=== PATIENT | male | born 1935 | race Caucasian/White ===

== ENCOUNTER → 2020-08-14 06:55 | Outpatient (CLI) | payer MEDICARE, SELFPAY ==
[2020-08-14 20:42] LABS: SARS-CoV-2 RNA PCR Positive
== END ==
PROVIDERS: PCP Internal Medicine; Visit Provider Nurse Practitioner
DX: U07.1 COVID-19 (principal)
CPT/HCPCS: C9803; U0003; U0005

== ENCOUNTER 2022-08-19 10:57 | Inpatient (IN) | payer MEDICARE, SELFPAY ==
[2022-08-19] VITALS (25 sets, daily range): BP systolic 149–218; BP diastolic 60–93; PULSE 78–120; RESP 10–32; TEMP 36.4–37.1; O2SAT 94–100
--- NOTE | ~2022-08-19 | CT_ITS ---
EXAMINATION: CT abdomen pelvis w con INDICATION: Abdominal pain TECHNIQUE: Computed tomographic images of the abdomen and pelvis were obtained after the administrati on of 100 cc of Omnipaque 350 intravenous contrast. The dose-length product (DLP) was 443.53 mGy-cm. Automated exposure control and iterative reconstruction technique were employed. COMPARISON: None available FINDINGS: Minimal dependent atelectasis is present in the lung bases. The heart size is normal. There is a moderate-sized sliding hiatal hernia. Punctate calcifications in an otherwise normal spleen lik nile represent healed granulomatous disease. There is mild distention of the gallbladder likely due to fasting state. The liver, pancreas, and adrenal glands are normal. There are small areas of cortical scarring of the kidneys. There are soft tissue attenuation masses of the left kidney measuring up to 1.5 cm There is calcified atherosclerosis of the aorta and many of the other arteries. 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 There is a right ingui nal hernia containing a short segment of small bowel. The proximal segment of bowel is upper limits o f normal in caliber and the distal segment is relatively decompressed. There is and mesenteric edema in the herniated segment of bowel and a small volume of ascites in the right inguinal hernia. Colonic diverticulosis is present without evidence of diverticulitis. There is marked enlargement of the pro state. Changes of mesh ventral hernia repair are noted. There is moderate lumbar spondylosis. IMPRESSION: 1. Right inguinal hernia containing a short segment of small bowel. Mesenteric edema and ascites are seen within the right inguinal hernia sac. The distal small bowel is relatively decompressed. Surgica l evaluation is recommended. 2. 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 Nonemergent vascu lar surgical evaluation is recommended. 3. Indeterminate masses of the left kidney. Follow-up with nonemergent CT or MRI without and with con trast is recommended. Reviewed, dictated and finalized at location [facility] IMPRESSION: 1. Right inguinal hernia containing a short segment of small bowel. Mesenteric edema and ascites are seen within the right inguinal hernia sac. The distal sma ll bowel is relatively decompressed. Surgical evaluation is recommended. 2. Chronic appearing dissection of the infrarenal abdominal aorta without aneur ysm. Nonemergent vascular surgical evaluation is recommended. 3. Indeterminate masses of the left kidney. Follow-up with nonemergent CT or MR I without and with contrast is recommended.
--- NOTE | ~2022-08-19 | XR_ITS ---
EXAMINATION: XR abdomen obstructive series DATE: 08/21/2022 12:23 INDICATION: Small bowel obstruction. TECHNIQUE: Upright and supine views of the abdomen were obtained. COMPARISON: CT abdomen and pelvis 08/19/2022 FINDINGS: There are multiple dilated loops of small bowel. There is prominent stool in the proximal c olon. No free intraperitoneal gas. There are surgical clips from ventral hernia repair. Skin gualberto overlie the right inguinal region. IMPRESSION: 1. Dilated small bowel status post recent surgery, consistent with adynamic ileus. Reviewed, dictated and finalized at location [facility]. [facility] IMPRESSION: 1. Dilated small bowel status post recent surgery, consistent with adynamic ile us.
[2022-08-19 13:02] LABS: Basophils Percent Auto 0.2 % (0.2-1.2); Eosinophils Percent Auto 0.1 % (0-4.4); Hematocrit 43.3 % (42.0-52.0); Hemoglobin 14.2 g/dL (14.0-18.0); Immature Granulocyte Absolute 0.05 K/mm3 (0.00-0.031); Immature Granulocyte Percent A 0.4 % (0-0.5); Lymphocytes Absolute Auto 0.55 K/mm3 (0.9-3.2); Lymphocytes Percent Auto 4.9 % (18.3-44.2); Mean Corpuscular HGB Conc 32.8 g/dl (32-36); Mean Corpuscular Volume 97.5 fl (80-100); Mean Platelet Volume 10.3 fl (7.4-10.4); Monocytes Absolute Auto 0.7 K/mm3 (0.1-0.6); Neutrophils Absolute Auto 9.9 K/mm3 (1.3-6.7); Neutrophils Percent Auto 88.4 % (45.5-73.1); Platelet Count Result 214 k/mm3 (150-375); Red Blood Count 4.44 M/mm3 (4.6-6.20); Red Cell Distribution Width 13.2 % (11.5-14.5); White Blood Count 11.2 K/mm3 (4.5-10.0)
[2022-08-19 13:25] LABS: Appearance Urine Clear (Clear); Bacteria Urine None Seen /hpf; Bilirubin Urine 1+ (Negative); Blood Urine Negative (Negative); Color Urine Dark Yellow (Yellow); Glucose Urine UA Negative (Negative); Ketones Urine 3+ mg/dL (Negative); Leukocyte Esterase Ur 1+ LEU/UL (Negative); Mucus Urine Present /lpf; Nitrate Urine Negative (Negative); Protein Urine 2+ mg/dL (Negative); Specific Grav Ur 1.027 (1.001-1.035); Squamous Epithelial Cell Urine Occasional /hpf (Few)
[2022-08-19 13:26] LABS: Alanine Aminotransferase 21 U/L (6-50); Albumin Level 4.7 g/dL (3.5-5.1); Alkaline Phosphatase 69 U/L (38-126); Anion Gap 7 mmol/L (8-16); Aspartate Amino Transferase 38 U/L (17-59); Bilirubin,Total 0.5 mg/dL (0.2-1.3); Blood Urea Nitrogen 27 mg/dL (9-20); Calcium 9.4 mg/dL (8.4-10.2); Carbon Dioxide 26 mmol/L (22-30); Chloride 101 mmol/L (98-107); Estimated Glomerular Filt Rate 48; Glucose 160 mg/dL (65-110); Lipase 125 U/L (23-300); Potassium 4.5 mmol/L (3.4-5.0); Sodium 134 mmol/L (137-145)
[2022-08-19 13:48] LABS: Add Urine Microscopic? YES
--- NOTE | 2022-08-19 17:18 | ED.ABDPAIN ---
HPI - Abdominal Pain General Chief Complaint: Abdominal Pain <Doretha Thompson APRN - Last Filed: 08/19/22 19:35> Stated Complaint: LOWER ABD PAIN <Doretha Thompson APRN - Last Filed: 08/19/22 19:35> Time Seen by Provider: 08/19/22 16:10 <Doretha Thompson APRN - Last Filed: 08/19/22 19:35> Source: patient <Doretha Thompson APRN - Last Filed: 08/19/22 19:35> Mode of arrival: ambulatory <Doretha Thompson APRN - Last Filed: 08/19/22 19:35> Limitations: no limitations <Doretha Thompson APRN - Last Filed: 08/19/22 19:35> History of Present Illness HPI narrative: 87-year-old male presents today with complaints/concerns of lower abdominal pain. He does have a history of a ventral hernia repair with mesh. Patient told triage nurse that was right lower abdominal pain. Patient now currently states is the entire lower abdomen. He does remember that this morning he had bent over and when he got up he noticed a sharp pain to the right lower groin. But he has noticed a bulge to the right groin region since he came back to the room. Patient currently rating pain 8-9 out of 10. Patient denies any current nausea, vomiting, diarrhea. He states he did have an episode this morning where he thought he was can have diarrhea and vomiting at the same time sat on the toilet for about 20 minutes with out anything happening. Patient does state his last bowel movement was this morning and was normal for him. Patient denies any fevers, body aches, chills, dysuria, blood in the urine. <Doretha Thompson APRN - Last Filed: 08/19/22 19:35> MD elicited complaint: abdominal pain <Doretha Thompson APRN - Last Filed: 08/19/22 19:35> Pertinent past history: none <Doretha Thompson APRN - Last Filed: 08/19/22 19:35> Pain Consistency: constant <Doretha Thompson TUBER MACHINE OPERATOR - Last Filed: 08/19/22 19:35> Location: suprapubic and groin (Right groin) <Doretha Thompson, TUBER MACHINE OPERATOR - Last Filed: 08/19/22 19:35> Severity: severe <Doretha Thompson - Last Filed: 08/19/22 19:35> Quality: sharp <Doretha Thompson - Last Filed: 08/19/22 19:35> Relieving factors: nothing <Doretha ThompsonSepN - Last Filed: 08/19/22 19:35> Related Data Home Medications: Home Medications Medication Instructions Recorded Confirmed aspirin 81 mg tablet,delayed 81 mg PO DAILY 12/26/20 03/11/22 release fluticasone propionate 110 1 puff inhalation Q12H PRN 12/26/20 03/11/22 mcg/actuation HFA aerosol inhaler (Flovent HFA) <Doretha Thompson - Last Filed: 08/19/22 19:35> Allergies/Adverse Reactions: Allergies Allergy/AdvReac Type Severity Reaction Status Date / Time Penicillins AdvReac Unknown Other Verified 03/11/22 12:58 <Doretha Thompson - Last Filed: 08/19/22 19:35> Review of Systems Review of Systems: CONSTITUTIONAL: Denies fever, chills, or sweats. EYES: Denies visual changes, redness, or discharge. ENT: Denies rhinorrhea, congestion, sore throat, or otalgia. CARDIOVASCULAR: Denies chest pain, palpitations, or edema. RESPIRATORY: Denies cough or dyspnea. GASTROINTESTINAL: Pelvic pain, right groin pain. Denies abdominal pain, nausea, vomiting, or diarrhea. GENITOURINARY: Denies dysuria or hematuria. SKIN: Denies rash or itching. MUSCULOSKELETAL: Denies back pain, joint pain, or myalgia. NEUROLOGIC: Denies headache, numbness, dizziness, or weakness. PSYCHIATRIC: Denies anxiety or depression. <Doretha Thompson, - Last Filed: 08/19/22 19:35> [facility] Past Medical History Medical History: Medical History (Updated 08/19/22 @ 19:46 by Melida Reed MD) COPD (chronic obstructive pulmonary disease) Diabetes Takes a sugar pill twice a day Finger fracture HLD (hyperlipidemia) [place] (hard of hearing) HTN (hypertension) Hydrocele, left Shingles Skin cancer Excisions from arms and ears <Doretha Thompson, TUBER MACHINE OPERATOR - Last Filed: 08/19/22 19:35> Surgical History Surgical Histor
[2022-08-19] MEDS: MORPHINE SULFATE (*CRX) 4 MG/ML INJ IV PUSH ×2 (17:49→18:15)
[2022-08-19] MEDS: SODIUM CHLORIDE 0.9% IV 1,000 ML 999 ML IV CONT (17:49)
[2022-08-19] MEDS: ONDANSETRON INJ 4 MG/2 ML VIAL IV PUSH (18:15)
--- NOTE | 2022-08-19 18:54 | ECG_ITS ---
Measurements Intervals [place] Rate: 96 P: 56 CT: 173 QRS: -19 QRSD: 111 T: 93 QT: 343 QTc: 435 Interpretive Statements SINUS RHYTHM INTRAVENTRICULAR CONDUCTION DELAY NONSPECIFIC ST & T-WAVE ABNORMALITY- ANTEROLAT/HIGH LAT LEADS BORDERLINE ECG NO PREVIOUS ECG AVAILABLE FOR COMPARISON Electronically Signed On 08-20-2022 6:30:11 [employer]AIL WAREHOUSE SUPERVISOR by Dany Miller D.O.
--- NOTE | 2022-08-19 19:17 | WPDANESEPP ---
Anes - Eval Pre Procedure Procedure: Operation Date: 08/19/22 20:00 Proposed Procedures p Inguinal Hernia Repair(Right) - Luis Alberto Kent MD Date/Time: 08/19/22 19:17 Pre Op Diagnosis: LOWER ABD PAIN Patient Data Age: 87 Gender: M Height: Weight: Last Vital Signs Temp 36.4 C 08/19/22 12:14 Pulse 94 08/19/22 18:47 Resp 20 08/19/22 18:47 BP 182/93 H 08/19/22 18:47 Pulse Ox 97 08/19/22 18:47 Allergies Allergy/AdvReac Type Severity Reaction Status Date / Time Penicillins AdvReac Unknown Other Verified 03/11/22 12:58 Home Medications Medication Instructions Recorded Confirmed Type aspirin 81 mg tablet,delayed 81 mg PO DAILY 12/26/20 03/11/22 History release fluticasone propionate 110 1 puff inhalation Q12H PRN 12/26/20 03/11/22 History mcg/actuation HFA aerosol inhaler (Flovent HFA) rosuvastatin 40 mg tablet (Crestor) 40 mg PO DAILY #90 tabs 11/06/21 03/11/22 Rx diltiazem HCl 240 mg capsule,24 See Rx Instructions .Route 02/25/22 03/11/22 Rx hr,extended release .COMPLEX #90 caps lisinopril 5 mg tablet See Rx Instructions .Route 05/28/22 Rx .COMPLEX #90 tabs metformin 1,000 mg tablet See Rx Instructions .Route 06/01/22 Rx .COMPLEX #180 tabs Laboratory Tests 08/19/22 08/19/22 08/19/22 12:48 12:48 12:49 WBC 11.2 K/mm3 H K/mm3 (4.5-10.0) RBC 4.44 M/mm3 L M/mm3 (4.6-6.20) Hgb 14.2 g/dL g/dL (14.0-18.0) Hct 43.3 % % (42.0-52.0) MCV 97.5 fl fl (80-100) MCH 32.0 pg pg (26-34) MCHC 32.8 g/dl g/dl (32-36) RDW 13.2 % % (11.5-14.5) Plt Count 214 k/mm3 k/mm3 (150-375) MPV 10.3 fl fl (7.4-10.4) Immature Gran % (Auto) 0.4 % % (0-0.5) Neut % (Auto) 88.4 % H % (45.5-73.1) Lymph % (Auto) 4.9 % L % (18.3-44.2) [place] % (Auto) 6.0 % % (2.6-8.5) Eos % (Auto) 0.1 % % (0-4.4) Baso % (Auto) 0.2 % % (0.2-1.2) Lymph # (Auto) 0.55 K/mm3 L K/mm3 (0.9-3.2) [place] # (Auto) 0.7 K/mm3 H K/mm3 (0.1-0.6) Eos # (Auto) 0.0 K/mm3 K/mm3 (0-0.3) Baso # (Auto) 0.0 K/mm3 K/mm3 (0.0-0.1) Abs Immat Gran (auto) 0.05 K/mm3 H K/mm3 (0.00-0.031) Absolute Neuts (auto) 9.9 K/mm3 H K/mm3 (1.3-6.7) Absolute Nucleated RBC 0.0 K/mm3 K/mm3 (0.0-0.012) Nucleated RBC % 0.0 % % (0.0-0.2) Sodium 134 mmol/L L mmol/L (137-145) Potassium 4.5 mmol/L mmol/L (3.4-5.0) Chloride 101 mmol/L mmol/L (98-107) Carbon Dioxide 26 mmol/L mmol/L (22-30) Anion Gap 7 mmol/L L mmol/L (8-16) BUN 27 mg/dL H mg/dL (9-20) Creatinine 1.40 mg/dL H mg/dL (0.7-1.3) Estim Creat Clear Calc Not Reportable Estimated GFR 48 L (59 - ) Glucose 160 mg/dL H mg/dL (65-110) Calcium 9.4 mg/dL mg/dL (8.4-10.2) Total Bilirubin 0.5 mg/dL mg/dL (0.2-1.3) AST 38 U/L U/L (17-59) ALT 21 U/L U/L (6-50) Alkaline Phosphatase 69 U/L U/L (38-126) Total Protein 8.0 g/dL g/dL (6.3-8.2) Albumin 4.7 g/dL g/dL (3.5-5.1) Lipase 125 U/L U/L (23-300) Urine Color Dark yellow (Yellow) Urine Appearance Clear (Clear) Urine pH 6.0 (5.0-9.0) Ur Specific [place] 1.027 (1.001-1.035) Urine Protein 2+ mg/dL H mg/dL (Negative) Urine Glucose (UA) Negative mg/dL mg/dL (Negative) Urine Ketones 3+ mg/dL H mg/dL (Negative) Ur Blood (Man) Negative (Negative) Urine Nitrate Negative (Negative) Urine Bilirubin 1+ H (Negative) Urine Urobilinogen 1.0 mg/dL mg/dL (<2.0) Leukocyte Esterase Rfl 1+ LITTLE/UL H LITTLE/UL (Negative) Urine RBC 3-5 /hpf H /hpf
--- NOTE | 2022-08-19 19:41 | PM.IMHP ---
H&P: HPI History of Present Illness Date/Time: 08/19/22 19:41 Chief Complaint: 87 years old male with past medical history of hypertension on Cardizem lisinopril aspirin COPD diabetes hyperlipidemia presented to the hospital with sudden onset lower abdominal pain severe cramping in nature worsening rapidly associated with 1 episode of vomiting patient did not pass gas had 1 bowel movement liquid then after that did not have any more bowel movement patient also complained of groin swelling patient has history of hernia with mesh repair in the past conservative management with manual reduction of hernia in the ER failed surgery was consulted reviewed CT scan patient has irreducible inguinal hernia possible plan for surgical intervention Review of Systems Review of Systems: Twelve system review was done negative except above PMFSH Past Medical History Medical History (Updated 08/19/22 @ 19:46 by Melida Reed MD) COPD (chronic obstructive pulmonary disease) Diabetes Takes a sugar pill twice a day Finger fracture HLD (hyperlipidemia) [place] (hard of hearing) HTN (hypertension) Hydrocele, left Shingles Skin cancer Excisions from arms and ears Surgical History Surgical History History of hernia repair Laparoscopic ventral hernia repair Status post excision of lipoma From posterior neck Family History Family History Sibling Patient's sister is in good health Family history of genetic disorder Father Cerebrovascular accident Family history of coronary artery disease Mother Family history of malignant neoplasm of ovary Other Diabetes mellitus Social History Social History Smoking packs per day: 2 Smoking cigarettes per day: 40.0 Years smoked: 25 Smoking pack-years: 50.00 Smoking status: Former smoker Tobacco type: cigarettes Second hand tobacco smoke exposure: No Smoking end date: 06/21/69 Additional smoking assessment comments: Quit years ago Alcohol intake: never Gender identity (if verbalized by the patient): Male Meds Home Medications and Allergies Home Medications Medication Instructions Recorded Confirmed Type aspirin 81 mg tablet,delayed 81 mg PO DAILY 12/26/20 03/11/22 History release fluticasone propionate 110 1 puff inhalation Q12H PRN 12/26/20 03/11/22 History mcg/actuation HFA aerosol inhaler (Flovent HFA) rosuvastatin 40 mg tablet (Crestor) 40 mg PO DAILY #90 tabs 11/06/21 03/11/22 Rx diltiazem HCl 240 mg capsule,24 See Rx Instructions .Route 02/25/22 03/11/22 Rx hr,extended release .COMPLEX #90 caps lisinopril 5 mg tablet See Rx Instructions .Route 05/28/22 Rx .COMPLEX #90 tabs metformin 1,000 mg tablet See Rx Instructions .Route 06/01/22 Rx .COMPLEX #180 tabs Allergies Allergy/AdvReac Type Severity Reaction Status Date / Time Penicillins AdvReac Unknown Other Verified 03/11/22 12:58 Vital Signs Vital Signs - 24 hr 08/19/22 12:14 08/19/22 16:15 08/19/22 16:30 Temperature 97.6 F Pulse Rate 78 96 93 Respiratory Rate 18 20 16 Blood Pressure 187/69 H 218/81 H Pulse Oximetry 98 98 99 08/19/22 16:45 08/19/22 17:00 08/19/22 17:01 Temperature Pulse Rate 95 99 93 Respiratory Rate 32 H 15 15 Blood Pressure 188/83 H Pulse Oximetry 98 99 97 08/19/22 17:25 08/19/22 17:26 08/19/22 17:30 Temperature Pulse Rate 96 97 97 Respiratory Rate 17 20 20 Blood Pressure 182/82 H Pulse Oximetry 95 98 98 08/19/22 17:45 08/19/22 18:02 08/19/22 18:22 Temperature Pulse Rate 120 H 101 H 95 Respiratory Rate 20 20 12 Blood Pressure 183/93 H Pulse Oximetry 98 97 08/19/22 18:37 08/19/22 18:47 Temperature Pulse Rate 95 94 Respiratory Rate 16 20 Blood Pressure 182/93 H Pulse Oximetry 94 97 Exam Narrative: GENERAL: W
--- NOTE | 2022-08-19 20:21 | P.PNAN_ITS ---
Anes - Eval Final PreProcedure Day of Procedure 08/19/22 20:21 Patient weight: overweight Heart: regular rate and rhythm Lungs: clear to auscultation Airway: Mallampati scale class II Neurological: alert and oriented Last oral intake: >/= 8 hours ASA classification: III Emergent: yes Anesthetic plan: proceed Anesthesia type and monitoring: general ETT and standard monitoring Results Review: All pre-operative results and documents have been reviewed as part of the pre- operative evaluation. Informed Consent: The patient's anesthetic plan and its attendant risks and benefits were discussed with the patient/family/POA. Questions were solicited and answers provided to the satisfaction of the patient/family/POA.
--- NOTE | 2022-08-19 20:21 | PM.IMHP ---
H&P: HPI History of Present Illness Date/Time: 08/19/22 20:21 Chief Complaint: Right groin pain Narrative: Patient is a 87-year-old gentleman who presented to the emergency room the scene and complaining of right groin pain. He stated that this morning after he got out of shower he bent over and started having right groin pain. Denied having nausea vomiting throughout the day but had continuous pain in the right groin region. He then noted he had a bulge in the right groin region and presented to the emergency room. In [place] [id number]. There was no tachycardia or hypotension. There was no lactic acidosis and his last electrolytes were normal. CT scan abdomen pelvis was performed showing a loop of small bowel which was incarcerated a right inguinal hernia. No evidence of perforation of bowel or ischemic changes were noted on CT scan. The patient has not had a previous inguinal hernia repair. He did have a prior periumbilical ventral hernia repair with mesh. Review of Systems Review of Systems: The remainder of the review of systems to include constitutional, HEENT, cardiovascular, respiratory, GI, , integumentary, musculoskeletal, endocrine, immunologic, hematologic, psychiatric, and neurologic are all negative except for which is mentioned above in the HPI. [facility] Past Medical History Medical History (Updated 08/19/22 @ 20:29 by Luis Alberto Kent MD) COPD (chronic obstructive pulmonary disease) Diabetes Takes a sugar pill twice a day Finger fracture HLD (hyperlipidemia) [place] (hard of hearing) HTN (hypertension) Hydrocele, left Shingles Skin cancer Excisions from arms and ears Surgical History Surgical History History of hernia repair Laparoscopic ventral hernia repair Status post excision of lipoma From posterior neck Family History Family History Sibling Patient's sister is in good health Family history of genetic disorder Father Cerebrovascular accident Family history of coronary artery disease Mother Family history of malignant neoplasm of ovary Other Diabetes mellitus Social History Social History Smoking packs per day: 2 Smoking cigarettes per day: 40.0 Years smoked: 25 Smoking pack-years: 50.00 Smoking status: Former smoker Tobacco type: cigarettes Second hand tobacco smoke exposure: No Smoking end date: 06/21/69 Additional smoking assessment comments: Quit years ago Alcohol intake: never Gender identity (if verbalized by the patient): Male Meds Home Medications and Allergies Home Medications Medication Instructions Recorded Confirmed Type aspirin 81 mg tablet,delayed 81 mg PO DAILY 12/26/20 03/11/22 History release fluticasone propionate 110 1 puff inhalation Q12H PRN 12/26/20 03/11/22 History mcg/actuation HFA aerosol inhaler (Flovent HFA) rosuvastatin 40 mg tablet (Crestor) 40 mg PO DAILY #90 tabs 11/06/21 03/11/22 Rx diltiazem HCl 240 mg capsule,24 See Rx Instructions .Route 02/25/22 03/11/22 Rx hr,extended release .COMPLEX #90 caps lisinopril 5 mg tablet See Rx Instructions .Route 05/28/22 Rx .COMPLEX #90 tabs metformin 1,000 mg tablet See Rx Instructions .Route 06/01/22 Rx .COMPLEX #180 tabs Allergies Allergy/AdvReac Type Severity Reaction Status Date / Time Penicillins AdvReac Unknown Other Verified 03/11/22 12:58 Vital Signs Vital Signs - 24 hr 08/19/22 12:14 08/19/22 16:15 08/19/22 16:30 Temperature 36.4 C Pulse Rate 78 96 93 Respiratory Rate 18 20 16 Blood Pressure 187/69 H 218/81 H Pulse Oximetry 98 98 99 08/19/22 16:45 08/19/22 17:00 08/19/22 17:01 Temperature Pulse Rate 95 99 93 Respiratory Rate 32 H 15 15 Blood Pressure 188/83 H Pulse Oximetry 98 99 97 08/19/22 17:25 08/19/22 17:2
--- NOTE | 2022-08-19 20:23 | PM.IMHP ---
H&P: HPI History of Present Illness Date/Time: 08/19/22 20:23 [facility] Past Medical History Medical History (Updated 08/19/22 @ 19:46 by Melida Reed MD) COPD (chronic obstructive pulmonary disease) Diabetes Takes a sugar pill twice a day Finger fracture HLD (hyperlipidemia) [place] (hard of hearing) HTN (hypertension) Hydrocele, left Shingles Skin cancer Excisions from arms and ears Surgical History Surgical History History of hernia repair Laparoscopic ventral hernia repair Status post excision of lipoma From posterior neck Family History Family History Sibling Patient's sister is in good health Family history of genetic disorder Father Cerebrovascular accident Family history of coronary artery disease Mother Family history of malignant neoplasm of ovary Other Diabetes mellitus Social History Social History Smoking packs per day: 2 Smoking cigarettes per day: 40.0 Years smoked: 25 Smoking pack-years: 50.00 Smoking status: Former smoker Tobacco type: cigarettes Second hand tobacco smoke exposure: No Smoking end date: 06/21/69 Additional smoking assessment comments: Quit years ago Alcohol intake: never Gender identity (if verbalized by the patient): Male Meds Home Medications and Allergies Home Medications Medication Instructions Recorded Confirmed Type aspirin 81 mg tablet,delayed 81 mg PO DAILY 12/26/20 03/11/22 History release fluticasone propionate 110 1 puff inhalation Q12H PRN 12/26/20 03/11/22 History mcg/actuation HFA aerosol inhaler (Flovent HFA) rosuvastatin 40 mg tablet (Crestor) 40 mg PO DAILY #90 tabs 11/06/21 03/11/22 Rx diltiazem HCl 240 mg capsule,24 See Rx Instructions .Route 02/25/22 03/11/22 Rx hr,extended release .COMPLEX #90 caps lisinopril 5 mg tablet See Rx Instructions .Route 05/28/22 Rx .COMPLEX #90 tabs metformin 1,000 mg tablet See Rx Instructions .Route 06/01/22 Rx .COMPLEX #180 tabs Allergies Allergy/AdvReac Type Severity Reaction Status Date / Time Penicillins AdvReac Unknown Other Verified 03/11/22 12:58 Vital Signs Vital Signs - 24 hr 08/19/22 12:14 08/19/22 16:15 08/19/22 16:30 Temperature 36.4 C Pulse Rate 78 96 93 Respiratory Rate 18 20 16 Blood Pressure 187/69 H 218/81 H Pulse Oximetry 98 98 99 08/19/22 16:45 08/19/22 17:00 08/19/22 17:01 Temperature Pulse Rate 95 99 93 Respiratory Rate 32 H 15 15 Blood Pressure 188/83 H Pulse Oximetry 98 99 97 08/19/22 17:25 08/19/22 17:26 08/19/22 17:30 Temperature Pulse Rate 96 97 97 Respiratory Rate 17 20 20 Blood Pressure 182/82 H Pulse Oximetry 95 98 98 08/19/22 17:45 08/19/22 18:02 08/19/22 18:22 Temperature Pulse Rate 120 H 101 H 95 Respiratory Rate 20 20 12 Blood Pressure 183/93 H Pulse Oximetry 98 97 08/19/22 18:37 08/19/22 18:47 Temperature Pulse Rate 95 94 Respiratory Rate 16 20 Blood Pressure 182/93 H Pulse Oximetry 94 97 H&P: Results Labs Labs: Short CBC 08/19/22 Range/Units 12:48 WBC 11.2 H (4.5-10.0) K/mm3 Hgb 14.2 (14.0-18.0) g/dL Hct 43.3 (42.0-52.0) % Plt Count 214 (150-375) k/mm3 BMP 08/19/22 12:48 Sodium 134 L Potassium 4.5 Chloride 101 Carbon Dioxide 26 BUN 27 H Creatinine 1.40 H Glucose 160 H Calcium 9.4 Liver Function 08/19/22 Range/Units 12:48 Total Bilirubin 0.5 (0.2-1.3) mg/dL AST 38 (17-59) U/L ALT 21 (6-50) U/L Alkaline Phosphatase 69 (38-126) U/L Albumin 4.7 (3.5-5.1) g/dL Urine 08/19/22 Range/Units 12:49 Urine Color Dark yellow (Yellow) Urine Appearance Clear (Clear) Urine pH 6.0 (5.0-9.0) Ur Specific [place] 1.027 (1.001-1.035) Urine Protein 2+ H (Negative) mg/dL Urine Glucose (UA)
[2022-08-19] MEDS: levoFLOXacin 500 MG/D5W 100 ML 500 MG/100 ML BAG 100 MG IVPB (20:41)
--- NOTE | 2022-08-19 20:41 | WPDHPUPDATE1 ---
History and Physical Update Update Date/Time: 08/19/22 20:41 History and Physical has been reviewed, including an updated exam of the patient. There are NO changes in the patient's condition. Risks, benefits, and alternatives have been discussed and questions answered. Patient agrees to proceed with procedure.
[2022-08-19] MEDS: LIDO 1%/EPINEPHRINE 1:100,000 20 ML VIAL INFILTRATE (22:22)
[2022-08-19] MEDS: BUPivacaine HCL 0.5% 10 ML AMP 20 ML INFILTRATE (22:22)
[2022-08-19] MEDS: LACTATED RINGERS 1,000 ML 41.67 ML IV CONT (22:45)
--- NOTE | 2022-08-19 23:05 | W.PM.PROC2 ---
Procedure Note - Detailed Date of Procedure 08/19/22 Pre-op Diagnosis Incarcerated right inguinal hernia with small-bowel obstruction Post-op Diagnosis Same Procedure Performed Open right inguinal hernia repair without mesh ( Miriam inguinal hernia repair) Surgeon Luis Alberto Kent MD Layer Out Nenita HORNA Anesthesia General Indications The patient is an 87-year-old gentleman who presented to the emergency room this evening with a 12hour history of acute onset of right groin pain associated with a lump in the right groin. CT scan abdomen pelvis showed an incarcerated loop of small bowel within a incarcerated right inguinal hernia causing a small-bowel obstruction. No evidence of free air or perforation of bowel was noted on CT scan. Findings Short segment of small bowel about 6cm incarcerated within the direct right inguinal hernia. The segment of small bowel was ischemic upon initial evaluation but not necrotic. After releasing the constriction on the bowel perfusion of the segment markedly improved and there was peristalsis in that segment of bowel although there was still venous congestion. No perforation the bowel is seen. Description of Procedure After informed consent was obtained the patient brought to the operating room was placed in supine position and then general endotracheal anesthesia was administered. The abdomen and the bilateral groins and scrotum were prepped in usual sterile fashion after placement of a Stanford catheter. A time-out was then performed correctly identifying the patient as well as procedure to be performed and verified the site marking as well as confirmed he was given Levaquin for IV antibiotics. I then made a oblique incision in the right groin region extending to the proximal port of the scrotum with a scalpel. Dissection was carried down through the subcutaneous tissues and down to Kaylie's fascia with electrocautery. The external oblique aponeurosis was encountered and was incised along direction of its fibers with Metzenbaum scissors. I opened the external oblique aponeurosis out through the external ring and identified the spermatic cord. I then looked at the floor of the inguinal canal and found that the patient had a direct inguinal defect causing incarceration of the loop of small bowel and small bowel obstruction. I then opened pseudo sac and identified some bloody serous fluid and a 5 to 6 cm segment of small bowel which was ischemic but not necrotic and there was no perforation. Utilizing electrocautery and right angle clamp I then opened the floor of the inguinal canal with electrocautery to release the constriction on the bowel. I was then able to eviscerate a little bit more of the small bowel proximal and distal to the ischemic segment through the hernia defect. I then warm and moist laparotomy sponges onto the segment of small bowel and over the course of about 10 minutes the color and perfusion to the segment of small bowel markedly improved. With pinching the small bowel there was peristalsis noted in this affected segment. I felt that the small bowel would be viable and so I reduced back into the abdomen through the floor of the of the inguinal canal. The pseudo sac was then closed utilizing a running 3-0 Vicryl suture. I then reduced it back through the defect. Given that there was ischemic bowel incarcerated in the hernia I felt that placement of mesh would have a risk of infection due to possible bacterial translocation. I then elected to perform a primary tissue repair in a [place] fashion of the right inguinal hernia. Then utilized 0 Ethibond sutures and approximated the conjoined tendon and the lateral portion of the lower rectus muscle to Hemanth's ligament laterally. Once I reached the area of the femoral artery I transitioned to approximating the rectus muscle fibers to the internal oblique muscle and transversalis fascia. Superior to the spermatic cord I also approximated the edge
[2022-08-19] MEDS: fentaNYL CITRATE INJ (*CRX) 100 MCG/2 ML VIAL 25 MCG IV PUSH ×4 (23:13→23:23)
--- NOTE | 2022-08-19 23:58 | ADMGEN ---
This patient, Panchito Louis, was admitted to Medical Room 240-01. Patient/family oriented to hospital policies and general routines including ID bracelet, bed and alarms, visiting hours, pain management, procedures, bathroom and other care routines, personal items, smoking policy, room service/diet, and visiting hours. Information on how to activate the Rapid Response Team has been discussed. Patient/Family are encouraged to report perceived risks to care and to ask questions if they do not understand what they are told or what they should do.
[2022-08-20] VITALS (13 sets, daily range): BP systolic 115–172; BP diastolic 50–68; PULSE 80–99; RESP 16–18; TEMP 36.8–37.3; O2SAT 95–97; BMI 25.3
[2022-08-20] MEDS: SODIUM CHLORIDE 0.9% IV 1,000 ML 100 ML IV CONT ×3 (01:08→23:37)
[2022-08-20] MEDS: cefTRIAXone 2 GM in SODIUM CHLORIDE 0.9% IV 100 ML 200 ML IVPB ×2 (01:52→21:01)
[2022-08-20 06:09] LABS: Basophils Percent Auto 0.2 % (0.2-1.2); Eosinophils Percent Auto 0.1 % (0-4.4); Hematocrit 43.4 % (42.0-52.0); Hemoglobin 13.8 g/dL (14.0-18.0); Immature Granulocyte Absolute 0.05 K/mm3 (0.00-0.031); Immature Granulocyte Percent A 0.4 % (0-0.5); Lymphocytes Absolute Auto 0.86 K/mm3 (0.9-3.2); Lymphocytes Percent Auto 6.3 % (18.3-44.2); Mean Corpuscular HGB Conc 31.8 g/dl (32-36); Mean Corpuscular Hemoglobin 32.2 pg (26-34); Mean Corpuscular Volume 101.2 fl (80-100); Mean Platelet Volume 9.9 fl (7.4-10.4); Monocytes Absolute Auto 1.9 K/mm3 (0.1-0.6); Monocytes Percent Auto 13.8 % (2.6-8.5); Neutrophils Absolute Auto 10.8 K/mm3 (1.3-6.7); Neutrophils Percent Auto 79.2 % (45.5-73.1); Platelet Count Result 208 k/mm3 (150-375); Red Blood Count 4.29 M/mm3 (4.6-6.20); Red Cell Distribution Width 13.5 % (11.5-14.5); White Blood Count 13.7 K/mm3 (4.5-10.0)
[2022-08-20 06:19] LABS: Alanine Aminotransferase 21 U/L (6-50); Albumin Level 3.8 g/dL (3.5-5.1); Alkaline Phosphatase 59 U/L (38-126); Anion Gap 8 mmol/L (8-16); Aspartate Amino Transferase 38 U/L (17-59); Bilirubin,Total 0.6 mg/dL (0.2-1.3); Blood Urea Nitrogen 17 mg/dL (9-20); Calcium 8.3 mg/dL (8.4-10.2); Carbon Dioxide 22 mmol/L (22-30); Chloride 103 mmol/L (98-107); Estimated CRCL calculation 46 ml/min; Estimated Glomerular Filt Rate > 60; Glucose 135 mg/dL (65-110); Potassium 4.2 mmol/L (3.4-5.0); Sodium 133 mmol/L (137-145)
[2022-08-20] MEDS: ONDANSETRON INJ 4 MG/2 ML VIAL IV PUSH ×2 (08:19→14:02)
[2022-08-20] MEDS: FAMOTIDINE 20 MG TABLET PO ×2 (08:24→20:49)
[2022-08-20] MEDS: ENOXAPARIN 40 MG/0.4 ML SYRINGE SUB-Q (08:24)
[2022-08-20 08:31] LABS: Glucose Point of Care 139 mg/dl (65-105)
[2022-08-20 09:25] LABS: Magnesium 1.6 mg/dL (1.6-2.3)
--- NOTE | 2022-08-20 09:27 | WPDANESPN ---
Anes - Prog Note Post-Op Date/Time: 08/20/22 09:27 Cardiovascular status: normal Respiratory status: normal Airway patency: baseline Mental status: baseline Post-Op hydration status: normal Vital Signs: Last Vital Signs Temp 98.8 F 08/20/22 04:18 Pulse 82 08/20/22 04:18 Resp 16 08/20/22 04:18 BP 138/55 L 08/20/22 04:18 Pulse Ox 97 08/20/22 04:18 O2 Del Method Room Air 08/20/22 01:00 O2 Flow Rate 6 08/19/22 22:36 Pain Score (VAS): 0 I/O: Intake & Output 08/19/22 08/20/22 08/20/22 23:59 07:59 15:59 Intake Total 1300 250 100 Output Total 300 Balance 1300 -50 100 Laboratory Tests 08/20/22 05:52 08/20/22 05:52 08/19/22 08/19/22 08/19/22 12:48 12:48 12:49 WBC 11.2 H RBC 4.44 L Hgb 14.2 Hct 43.3 MCV 97.5 MCH 32.0 MCHC 32.8 RDW 13.2 Plt Count 214 MPV 10.3 Immature Gran % (Auto) 0.4 Neut % (Auto) 88.4 H Lymph % (Auto) 4.9 L [place] % (Auto) 6.0 Eos % (Auto) 0.1 Baso % (Auto) 0.2 Lymph # (Auto) 0.55 L [place] # (Auto) 0.7 H Eos # (Auto) 0.0 Baso # (Auto) 0.0 Abs Immat Gran (auto) 0.05 H Absolute Neuts (auto) 9.9 H Absolute Nucleated RBC 0.0 Nucleated RBC % 0.0 Sodium 134 L Potassium 4.5 Chloride 101 Carbon Dioxide 26 Anion Gap 7 L BUN 27 H Creatinine 1.40 H Estim Creat Clear Calc Not Reportable Estimated GFR 48 L Glucose 160 H POC Capillary Glucose Calcium 9.4 Magnesium Total Bilirubin 0.5 AST 38 ALT 21 Alkaline Phosphatase 69 Total Protein 8.0 Albumin 4.7 Lipase 125 Urine Color Dark yellow Urine Appearance Clear Urine pH 6.0 Ur Specific [place] 1.027 Urine Protein 2+ H Urine Glucose (UA) Negative Urine Ketones 3+ H Ur Blood (Man) Negative Urine Nitrate Negative Urine Bilirubin 1+ H Urine Urobilinogen 1.0 Leukocyte Esterase Rfl 1+ H Urine RBC 3-5 H Urine WBC 11-20 Ur Squamous Epith Cells Occasional Urine Bacteria None seen Urine Casts 6-10 Urine Mucus Present 08/20/22 08/20/22 08/20/22 05:50 05:52 05:52 WBC 13.7 H RBC 4.29 L Hgb 13.8 L Hct 43.4 MCV 101.2 H MCH 32.2 MCHC 31.8 L RDW 13.5 Plt Count 208 MPV 9.9 Immature Gran % (Auto) 0.4 Neut % (Auto) 79.2 H Lymph % (Auto) 6.3 L [place] % (Auto) 13.8 H Eos % (Auto) 0.1 Baso % (Auto) 0.2 Lymph # (Auto) 0.86 L [place] # (Auto) 1.9 H Eos # (Auto) 0.0 Baso # (Auto) 0.0 Abs Immat Gran (auto) 0.05 H Absolute Neuts (auto) 10.8 H Absolute Nucleated RBC 0.0 Nucleated RBC % 0.0 Sodium 133 L Potassium 4.2 Chloride 103 Carbon Dioxide 22 Anion Gap 8 BUN 17 D Creatinine 1.00 Estim Creat Clear Calc 46 Estimated GFR > 60 Glucose 135 H POC Capillary Glucose Calcium 8.3 L Magnesium 1.6 Total Bilirubin 0.6 AST 38 ALT 21 Alkaline Phosphatase 59 Total Protein 6.0 L Albumin 3.8 Lipase Urine Color Urine Appearance Urine pH Ur Specific [place] Urine Protein Urine Glucose (UA) Urine Ketones Ur Blood (Man) Urine Nitrate Urine Bilirubin Urine Urobilinogen Leukocyte Esterase Rfl Urine RBC Urine WBC Ur Squamous Epith Cells Urine Bacteria Urine Casts Urine Mucus 08/20/22 08:29 WBC RBC Hgb Hct MCV MCH MCHC RDW Plt Count MPV Immature Gran % (Auto) Neut % (Auto) Lymph % (Auto) [place] % (Auto) Eos % (Auto) Baso % (Auto) Lymph # (Auto) [place] # (Auto) Eos # (Auto) Baso # (Auto) Abs Immat Gran (auto) Absolute Neuts (auto) Absolute Nucleated RBC Nucleated RBC % Sodium Potassium Chloride Carbon Dioxide Anion Gap BUN Creatinine Estim Creat Clear Calc Estimated GFR Glucose POC Capillary Glucose 139 H Calcium Magnesium Total Bilirubin AST ALT Alkaline Phosphatase Total Prot
--- NOTE | 2022-08-20 10:11 | PM.PNGS ---
Progress Note: A&P Assessment and Plan (1) Incarcerated right inguinal hernia: Code(s): K40.30 - Unilateral inguinal hernia, with obstruction, without gangrene, not specified as recurrent Status: Acute Assessment and Plan: Post-op day 1 following open incarcerated right inguinal hernia repair without mesh and doing well. Await return of bowel function. Had some nausea this morning, but improved. Continue clear liquids for today. Will keep IV fluids at 100 mL/hr for now but could be decreased if nausea improves and able to tolerate liquids. PT/OT ordered and encouraged trying to get up to the chair and ambulate today as tolerated. Noted that WBC up slightly to 13.7k today, repeat labs tomorrow. Plan I have discussed the patient's case and plan of care with Dr. Kent. Subjective Subjective Date/Time Seen: 08/20/22 10:11 Post Op day: 1 (Open right inguinal hernia repair without mesh) Patient reports: feels better, no flatus, no bowel movement and nausea Interval history: Patient feeling well this morning. Had some nausea earlier, no vomiting, and improved after Zofran. He only has slight pain at his incision in the right groin. No abdominal pain. He reports some belching. No flatus. Still complaining of dysuria after having his urinary catheter removed, but improved. Also reviewed telemetry as the nurse reports a run of Vtach on tele this morning. In review, he had a 5-beat run of Vtach around 8:40 am. He denies any chest pain/pressure, palpitations, or SOB. Labs reviewed and electrolytes are unremarkable, I added mag to his morning labs. Review of Systems Review of Systems: All systems reviewed & are unremarkable except as noted in HPI and below Constitutional: Constitutional: Reports as per HPI, Reports no additional constitutional complaints, Denies chills and Denies fever(s) Cardiovascular: Cardiovascular: Reports no additional cardiovascular complaints, Denies chest pain and Denies leg edema Respiratory: Respiratory: Reports no additional respiratory complaints, Denies cough and Denies dyspnea Gastrointestinal: Gastrointestinal: Reports as per HPI and Reports no additional gastrointestinal complaints Neurologic: Reports system reviewed and no additional complaints, except as documented, Denies Abnormal speech present, Denies headache(s) and Denies focal weakness Exam Const: General: comfortable, no acute distress and awake Orientation/consciousness: patient oriented x3 Resp: Effort & Inspection: normal respiratory effort Auscultation: clear to auscultation bilaterally Cardio: Rate: regular rate Rhythm: regular rhythm GI: Inspection: incision (right groin dressing intact with scant dry sanguineous drainage) and other (mildly distended) GI Palp: Yes Soft to palpation, No Tenderness to palpation present (GI) and No Guarding due to palpation present (GI) Auscultation: Hypoactive bowel sounds present Extrem: General: no calf tenderness and no edema Psych: Mental Status: mental status grossly normal Insight: Good insight present (Psych) Objective Data Vital Signs Vital Signs: Vital Signs - 24 hr 08/19/22 12:14 08/19/22 16:15 08/19/22 16:30 Temperature 97.6 F Pulse Rate 78 96 93 Respiratory Rate 18 20 16 Blood Pressure 187/69 H 218/81 H Pulse Oximetry 98 98 99 Oxygen Delivery Oxygen Flow Rate 08/19/22 16:45 08/19/22 17:00 08/19/22 17:01 Temperature Pulse Rate 95 99 93 Respiratory Rate 32 H 15 15 Blood Pressure 188/83 H Pulse Oximetry 98 99 97 Oxygen Delivery Oxygen Flow Rate 08/19/22 17:25 08/19/22 17:26 08/19/22 17:30 Temperature Pulse Rate 96 97 97 Respiratory Rate 17 20 20 Blood Pressure 182/82 H Pulse Oximetry 95 98 98 Oxygen Delivery Oxygen Flow Rate 08/19/22 17:45 08/19/22 18:02 08/19/22 18:22 Temperature Pulse Rate 120 H 101 H 95 Respiratory Rate 20 20 12 Blood Pressure 183/93 H Pulse Oximetry 98 97 Oxygen Delivery O
--- NOTE | 2022-08-20 11:04 | PCOTNOTE ---
Attempted to see pt. for occupational therapy evaluation. Pt. currently with doctor and family and room. Following.
[2022-08-20 12:27] LABS: Glucose Point of Care 138 mg/dl (65-105)
--- NOTE | 2022-08-20 13:00 | PM.IMPN ---
Progress Note: A&P Assessment and Plan (1) Inguinal hernia: Qualifiers: Laterality: unilateral Code(s): K40.90 - Unilateral inguinal hernia, without obstruction or gangrene, not specified as recurrent Status: Acute Assessment and Plan: POD 1 CT of the abd/pel shows 1. Right inguinal hernia containing a short segment of small bowel. Mesenteric edema and ascites are seen within the right inguinal hernia sac. The distal small bowel is relatively decompressed. Surgical evaluation is recommended 2. 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 Nonemergent vascular surgical evaluation is recommended. Irreducible inguinal hernia WBC slightly elevated at 13.7 Give IV fluids General surgery consulted Clear liquids currently (2) Chronic kidney disease, stage 1: Code(s): N18.1 - Chronic kidney disease, stage 1 Status: Acute Assessment and Plan: Acute on chronic renal failure Current BUN/Cr 17/1.00 Most likely related to dehydration Currently at baseline Seems resolved Continue to trend labs (3) HTN (hypertension): Code(s): I10 - Essential (primary) hypertension Status: Acute Assessment and Plan: Current BP is 147/64 Can most likely restart lisinopril now that renal failure is resolved Resume Cardizem once home medication reconciled Added IV hydralazine p.r.n. 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0 - Tachycardia, unspecified Status: Acute Assessment and Plan: Did have a [address] Mag is 1.6 Will replace with 4gm of mag Continue telemetry Trend labs Time Spent With Patient Time: 56 m inutes Time with patient: Greater than 35 minutes Subjective Date/time seen: 08/20/22 1300 Interval history: 08/20/22 1300 Patient is lying in bed. Patient stated he is little lost his any has been eating. He denies any chest pain, shortness a breath, diarrhea or constipation. He did have a 5 beat run sinus tach. Which is been unsustained asymptomatic. Currently patient is doing okay and is passing gas. 08/19/221940 87 years old male with past medical history of hypertension on Cardizem lisinopril aspirin COPD diabetes hyperlipidemia presented to the hospital with sudden onset lower abdominal pain severe cramping in nature worsening rapidly associated with 1 episode of vomiting patient did not pass gas had 1 bowel movement liquid then after that did not have any more bowel movement patient also complained of groin swelling patient has history of ? hernia with mesh repair in the past conservative management with manual reduction of hernia in the ER failed surgery was consulted reviewed CT scan patient has irreducible i
[2022-08-20] MEDS: MAGNESIUM SULF 4 GM/WATER100ML 4 GM/100 ML BAG IVPB (15:26)
[2022-08-20 17:05] LABS: Glucose Point of Care 197 mg/dl (65-105)
[2022-08-20] MEDS: BISACODYL 10 MG SUPPOSITORY RECTAL (20:49)
[2022-08-20 22:22] LABS: Glucose Point of Care 182 mg/dl (65-105)
[2022-08-21] VITALS (7 sets, daily range): BP systolic 134–157; BP diastolic 57–67; PULSE 85–105; RESP 14–18; TEMP 36.5–37.5; O2SAT 93–98
[2022-08-21] MEDS: ONDANSETRON INJ 4 MG/2 ML VIAL IV PUSH ×2 (00:53→06:48)
[2022-08-21 04:55] LABS: Basophils Percent Auto 0.2 % (0.2-1.2); Eosinophils Percent Auto 0.1 % (0-4.4); Hematocrit 41.3 % (42.0-52.0); Hemoglobin 13.6 g/dL (14.0-18.0); Immature Granulocyte Absolute 0.03 K/mm3 (0.00-0.031); Immature Granulocyte Percent A 0.3 % (0-0.5); Lymphocytes Absolute Auto 0.95 K/mm3 (0.9-3.2); Lymphocytes Percent Auto 8.1 % (18.3-44.2); Mean Corpuscular HGB Conc 32.9 g/dl (32-36); Mean Corpuscular Hemoglobin 32.1 pg (26-34); Mean Corpuscular Volume 97.4 fl (80-100); Mean Platelet Volume 10.4 fl (7.4-10.4); Monocytes Absolute Auto 1.7 K/mm3 (0.1-0.6); Monocytes Percent Auto 14.2 % (2.6-8.5); Neutrophils Absolute Auto 9.1 K/mm3 (1.3-6.7); Neutrophils Percent Auto 77.1 % (45.5-73.1); Platelet Count Result 198 k/mm3 (150-375); Red Blood Count 4.24 M/mm3 (4.6-6.20); Red Cell Distribution Width 13.5 % (11.5-14.5); White Blood Count 11.8 K/mm3 (4.5-10.0)
[2022-08-21 05:10] LABS: Alanine Aminotransferase 21 U/L (6-50); Albumin Level 3.6 g/dL (3.5-5.1); Alkaline Phosphatase 63 U/L (38-126); Anion Gap 7 mmol/L (8-16); Aspartate Amino Transferase 30 U/L (17-59); Bilirubin,Total 0.4 mg/dL (0.2-1.3); Blood Urea Nitrogen 15 mg/dL (9-20); Carbon Dioxide 22 mmol/L (22-30); Chloride 104 mmol/L (98-107); Estimated CRCL calculation 42 ml/min; Estimated Glomerular Filt Rate > 60; Glucose 147 mg/dL (65-110); Magnesium 2.5 mg/dL (1.6-2.3); Potassium 4.2 mmol/L (3.4-5.0); Sodium 133 mmol/L (137-145)
[2022-08-21 08:38] LABS: Glucose Point of Care 150 mg/dl (65-105)
--- NOTE | 2022-08-21 09:30 | P.PNIM_ITS ---
Progress Note: A&P Assessment and Plan (1) Inguinal hernia: Qualifiers: Laterality: unilateral Code(s): K40.90 - Unilateral inguinal hernia, without obstruction or gangrene, not specified as recurrent Status: Acute Assessment and Plan: * POD 2 * CT of the abd/pel shows 1. Right inguinal hernia containing a short segment of small bowel. Mesenteric edema and ascites are seen within the right inguinal hernia sac. The distal small bowel is relatively decompressed. Surgical evaluation is recommended 2. 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 Nonemergent vascular surgical evaluation is recommended. * Irreducible inguinal hernia * WBC trending down currently 11.8 * Give IV fluids, can be stopped if able to take in PO * General surgery consulted * NPOwith ice chips * Indications of ilieus noted * Consider NG tube (2) Chronic kidney disease, stage 1: Code(s): N18.1 - Chronic kidney disease, stage 1 Status: Acute Assessment and Plan: * Acute on chronic renal failure * Current BUN/Cr 15/1.10, remains at baseline * Most likely related to dehydration * Currently at baseline * Seems resolved * Continue to trend labs (3) HTN (hypertension): Code(s): I10 - Essential (primary) hypertension Status: Acute Assessment and Plan: * Current BP is 157/67 * restart lisinopril and Cardizem * Trend BP * Adjust therapy as indicated (4) HLD (hyperlipidemia): Code(s): E78.5 - Hyperlipidemia, unspecified Status: Acute Assessment and Plan: * Continue rosuvastatin (5) COPD (chronic obstructive pulmonary disease): Code(s): J44.9 - Chronic obstructive pulmonary disease, unspecified Status: Acute Assessment and Plan: * Stable, chronic * Not in acute exacerbation * Albuterol if indicated (6) Diabetes: Qualifiers: Diabetes mellitus fdc insulin use: without art instructor use Diabetes mellitus type: type 2 Code(s): E11.9 - Type 2 diabetes mellitus without complications Status: Chronic Assessment and Plan: * Current glucose 147 * Insulin sliding scale * continue to trend glucose * Accu cheks * Adjust therapy as indicated (7) Leukocytosis: Code(s): D72.829 - Elevated white blood cell count, unspecified Status: Acute Assessment and Plan: * Probably reactive, currently at 13.7 * No evidence of bowel ischemia * Urine culture no growth * Stop IV Rocephin * No other indication noted for infection (8) Sinus tachycardia: Code(s): R00.0 - Tachycardia, unspecified Status: Acute Assessment and Plan: * Did have a [address] * Mag is 2.5 * Continue to trend labs * Replace as indicated Time Spent With Patient Time: 48 minutes Time with patient: Greater than 35 minutes Subjective Date/time seen: 08/21/22929 Interval history: 08/21/22929 Patient is sitting in the chair. He stated that he is eating and is tolerating clear liquids at this time. He also stated that he is still very nauseate
--- NOTE | 2022-08-21 09:30 | PM.IMPN ---
Progress Note: A&P Assessment and Plan (1) Inguinal hernia: Qualifiers: Laterality: unilateral Code(s): K40.90 - Unilateral inguinal hernia, without obstruction or gangrene, not specified as recurrent Status: Acute Assessment and Plan: POD 2 CT of the abd/pel shows 1. Right inguinal hernia containing a short segment of small bowel. Mesenteric edema and ascites are seen within the right inguinal hernia sac. The distal small bowel is relatively decompressed. Surgical evaluation is recommended 2. 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 Nonemergent vascular surgical evaluation is recommended. Irreducible inguinal hernia WBC trending down currently 11.8 Give IV fluids, can be stopped if able to take in PO General surgery consulted NPOwith ice chips Indications of ilieus noted Consider NG tube (2) Chronic kidney disease, stage 1: Code(s): N18.1 - Chronic kidney disease, stage 1 Status: Acute Assessment and Plan: Acute on chronic renal failure Current BUN/Cr 15/1.10, remains at baseline Most likely related to dehydration Currently at baseline Seems resolved Continue to trend labs (3) HTN (hypertension): Code(s): I10 - Essential (primary) hypertension Status: Acute Assessment and Plan: Current BP is 157/67 restart lisinopril and Cardizem Trend BP Adjust therapy as indicated (4) HLD (hyperlipidemia): Code(s): E78.5 - Hyperlipidemia, unspecified Status: Acute Assessment and Plan: Continue rosuvastatin (5) COPD (chronic obstructive pulmonary disease): Code(s): J44.9 - Chronic obstructive pulmonary disease, unspecified Status: Acute Assessment and Plan: Stable, chronic Not in acute exacerbation Albuterol if indicated (6) Diabetes: Qualifiers: Diabetes mellitus snf insulin use: without ad terminal makeup operator use Diabetes mellitus type: type 2 Code(s): E11.9 - Type 2 diabetes mellitus without complications Status: Chronic Assessment and Plan: Current glucose 147 Insulin sliding scale continue to trend glucose Accu cheks Adjust therapy as indicated (7) Leukocytosis: Code(s): D72.829 - Elevated white blood cell count, unspecified Status: Acute Assessment and Plan: Probably reactive, currently at 13.7 No evidence of bowel ischemia Urine culture no growth Stop IV Rocephin No other indication noted for infection (8) Sinus tachycardia: Code(s): R00.0 - Tachycardia, unspecified Status: Acute Assessment and Plan: Did have a [address] Mag is 2.5 Continue to trend labs Replace as indicated Time Spent With Patient Time: 48 minutes Time with patient: Greater than 35 minutes Subjective Date/time seen: 08/21/22929 Interval history: 08/21/22929 Patient is sitting in the chair. He stated that he is eating and is tolerating clear liquids at this time. He also stated that he is still very nauseated and really has not had any relief since admission. He is also denying any current gas, or BM at this time. He does appear and feel pretty distended and firm. He denies any further chest pain, shortness of breath, weakness, fatigue. He has also not had any further episodes of ST or abnormal rhythms. 08/20/22 1300 Patient is lying in bed. Patient stated he is little lost his any has been eating. He denies any chest pain, shortness a breath, diarrhea or constipation. He did have a 5 beat run sinus tach. Which is been unsustained asymptomatic. Currently patient is doing okay and is passing gas. 08/19/221940 87 years old male with past medical history of hypertension on Cardizem lisinopril aspirin COPD diabetes hyperlipidem
[2022-08-21] MEDS: ENOXAPARIN 40 MG/0.4 ML SYRINGE SUB-Q (09:51)
[2022-08-21] MEDS: FAMOTIDINE 20 MG TABLET PO ×2 (09:51→21:19)
[2022-08-21] MEDS: lisinopriL 10 MG TABLET PO (09:51)
[2022-08-21] MEDS: ROSUVASTATIN 10 MG TABLET 20 MG PO (09:51)
[2022-08-21] MEDS: SODIUM CHLORIDE 0.9% IV 1,000 ML 100 ML IV CONT ×3 (09:54→20:00)
--- NOTE | 2022-08-21 12:01 | PM.PNGS ---
Progress Note: A&P Assessment and Plan (1) Incarcerated right inguinal hernia: Code(s): K40.30 - Unilateral inguinal hernia, with obstruction, without gangrene, not specified as recurrent Status: Acute Assessment and Plan: The patient continues to have a postoperative ileus. He has not had any flatus or bowel movements. Will go ahead and get a obstructive series today. Will head back and down to NPO status except ice chips. We will give another Dulcolax suppository today. Electrolytes are all okay so low-potassium is not the reason for his ileus. Make sure gets up to ambulate with therapy and walks in the hallways as well as sitting up in the chair as much as possible. He has only been getting IV Tylenol for pain and has not been getting any narcotics. If he continues to become more distended or has any emesis then he may need to have a nasogastric tube placed. Continue to observe for now but hopefully with the tincter of time his ileus will resolve and we can advance his diet. Subjective Subjective Date/Time Seen: 08/21/22 12:01 Interval history: Patient now postop day 2 after open incarcerated right inguinal hernia repair without mesh. A loop of small bowel was incarcerated which was ischemic but not necrotic and no bowel resection was performed. He has not passed any flatus or had any bowel movements. He feels distended and mildly nauseous but has not had any emesis. Potassium level is within normal limits and white blood cell count is lower at 11,800 today. He has been afebrile. Has been able to get up and ambulate with therapy to the bathroom and ambulate the hallways. Exam Narrative: The abdomen is soft and distended. Has some mild tenderness the right lower quadrant but no guarding or any peritoneal signs. The right groin incision is healing well without any drainage or redness. Bowel sounds are decreased. Objective Data Vital Signs Vital Signs: Vital Signs - 24 hr 08/20/22 12:04 08/20/22 14:02 08/20/22 16:00 Temperature 37.2 C Pulse Rate 90 92 99 Respiratory Rate 16 Blood Pressure 147/64 H Pulse Oximetry 97 Oxygen Delivery 08/20/22 17:58 08/20/22 21:53 08/20/22 20:30 Temperature 37.3 C 36.8 C Pulse Rate 93 94 Respiratory Rate 18 16 Blood Pressure 142/67 H 115/50 L Pulse Oximetry 95 96 Oxygen Delivery Room Air 08/21/22 00:04 08/20/22 20:00 08/21/22 00:00 Temperature 36.9 C Pulse Rate 88 89 91 Respiratory Rate 14 Blood Pressure 134/66 Pulse Oximetry 98 Oxygen Delivery 08/21/22 04:00 08/21/22 05:57 08/21/22 08:00 Temperature 37.3 C Pulse Rate 105 H 93 93 Respiratory Rate 16 16 Blood Pressure 157/67 H Pulse Oximetry 93 93 Oxygen Delivery Room Air Intake/Output Intake/Output: Intake & Output 08/18/22 08/19/22 08/20/22 08/21/22 23:59 23:59 23:59 23:59 Intake Total 1300 3840 1540 Output Total 1300 300 Balance 1300 2540 1240 Meds/Results Medications: Active Medications Generic Name Dose Route Start Last Admin Trade Name Freq PRN Reason Stop Dose Admin Acetaminophen 650 mg 08/19/22 19:37 Acetaminophen 325 Mg Tablet PO Q4H PRN Mild Pain (1-3) or Fever Hydrocodone Bitart/Acetaminophen 1 tab 08/19/22 19:37 Hydrocodone/Acetaminophen (*Crx) 5-325 Mg Tablet PO Q6H PRN Pain Rated 4-6 Albuterol 2.5 mg 08/19/22 19:37 Albuterol Sulfate Neb 2.5 Mg/3 Ml Inh INHALATION Q6HRT PRN Shortness Of Breath Bisacodyl 10 mg 08/21/22 11:57 Bisacodyl 10 Mg Suppository RECTAL 08/21/22 11:58 ONCE ONE Bisacodyl 10 mg 08/21/22 11:57 Bisacodyl 10 Mg Suppository RECTAL QAM PRN Constipation Dextrose 12.5 gm 08/19/22 19:40 Dextrose 50% 25 Gm/50 Ml Syringe IV PUSH PRN PRN Hypoglycemia Protocol Diltiazem HCl 240 mg 08/21/22 09:00 08/21/22 09:51 Diltiazem Hcl Cd 240 Mg Cap.Er.24h PO 240 mg QAM MARBELLA Administration Enoxaparin
[2022-08-21 12:12] LABS: Glucose Point of Care 213 mg/dl (65-105)
[2022-08-21] MEDS: BISACODYL 10 MG SUPPOSITORY RECTAL (13:01)
[2022-08-21 16:49] LABS: Glucose Point of Care 115 mg/dl (65-105)
[2022-08-21] MEDS: cefTRIAXone 2 GM in SODIUM CHLORIDE 0.9% IV 100 ML 200 ML IVPB (21:21)
[2022-08-21 22:14] LABS: Glucose Point of Care 119 mg/dl (65-105)
[2022-08-22 04:59] VITALS: BP 135/56; PULSE 76; RESP 16; TEMP 36.4; O2SAT 95
[2022-08-22] MEDS: SODIUM CHLORIDE 0.9% IV 1,000 ML 100 ML IV CONT (06:45)
[2022-08-22 08:26] LABS: Glucose Point of Care 101 mg/dl (65-105)
[2022-08-22 08:41] LABS: Basophils Percent Auto 0.1 % (0.2-1.2); Eosinophils Absolute Auto 0.1 K/mm3 (0-0.3); Eosinophils Percent Auto 0.9 % (0-4.4); Hematocrit 36.5 % (42.0-52.0); Hemoglobin 11.8 g/dL (14.0-18.0); Immature Granulocyte Absolute 0.03 K/mm3 (0.00-0.031); Immature Granulocyte Percent A 0.4 % (0-0.5); Lymphocytes Absolute Auto 0.81 K/mm3 (0.9-3.2); Lymphocytes Percent Auto 10.2 % (18.3-44.2); Mean Corpuscular HGB Conc 32.3 g/dl (32-36); Mean Corpuscular Hemoglobin 32.6 pg (26-34); Mean Corpuscular Volume 100.8 fl (80-100); Mean Platelet Volume 10.5 fl (7.4-10.4); Monocytes Absolute Auto 1.2 K/mm3 (0.1-0.6); Monocytes Percent Auto 14.7 % (2.6-8.5); Neutrophils Absolute Auto 5.9 K/mm3 (1.3-6.7); Neutrophils Percent Auto 73.7 % (45.5-73.1); Platelet Count Result 144 k/mm3 (150-375); Red Blood Count 3.62 M/mm3 (4.6-6.20); Red Cell Distribution Width 13.7 % (11.5-14.5)
[2022-08-22] MEDS: ENOXAPARIN 40 MG/0.4 ML SYRINGE SUB-Q (08:43)
[2022-08-22 08:44] VITALS: RESP 16; O2SAT 95
[2022-08-22] MEDS: ROSUVASTATIN 10 MG TABLET 20 MG PO (08:44)
[2022-08-22] MEDS: FAMOTIDINE 20 MG TABLET PO ×2 (08:44→21:01)
[2022-08-22] MEDS: lisinopriL 10 MG TABLET PO (08:44)
[2022-08-22 08:58] LABS: Alanine Aminotransferase 20 U/L (6-50); Albumin Level 2.9 g/dL (3.5-5.1); Alkaline Phosphatase 54 U/L (38-126); Anion Gap 5 mmol/L (8-16); Aspartate Amino Transferase 30 U/L (17-59); Bilirubin,Total 0.4 mg/dL (0.2-1.3); Blood Urea Nitrogen 15 mg/dL (9-20); Calcium 7.3 mg/dL (8.4-10.2); Carbon Dioxide 23 mmol/L (22-30); Chloride 108 mmol/L (98-107); Estimated CRCL calculation 46 ml/min; Estimated Glomerular Filt Rate > 60; Glucose 101 mg/dL (65-110); Potassium 3.7 mmol/L (3.4-5.0); Sodium 136 mmol/L (137-145)
--- NOTE | 2022-08-22 10:45 | PM.PNGS ---
Progress Note: A&P Assessment and Plan (1) Incarcerated right inguinal hernia: Code(s): K40.30 - Unilateral inguinal hernia, with obstruction, without gangrene, not specified as recurrent Status: Acute Assessment and Plan: Bowel function returning. Start clear liquids for lunch. Advance as tolerated. Possibly home in 1-2 days if continuing to improve. Subjective Subjective Date/Time Seen: 08/22/22 10:45 Interval history: +BM and passing flatus. No bloating or nausea. Pain controlled. Exam GI: Inspection: non-distended and incision (dry, intact) GI Palp: Yes Soft to palpation, No Tenderness to palpation present (GI) and No Guarding due to palpation present (GI) Auscultation: normal bowel sounds Objective Data Vital Signs Vital Signs: Vital Signs - 24 hr 08/21/22 14:00 08/21/22 19:54 08/21/22 21:00 Temperature 36.5 C 37.5 C Pulse Rate 85 88 Respiratory Rate 18 16 Blood Pressure 137/57 L 150/67 H Pulse Oximetry 95 95 Oxygen Delivery Room Air 08/22/22 04:59 Temperature 36.4 C Pulse Rate 76 Respiratory Rate 16 Blood Pressure 135/56 L Pulse Oximetry 95 Oxygen Delivery Intake/Output Intake/Output: Intake & Output 08/19/22 08/20/22 08/21/22 08/22/22 23:59 23:59 23:59 23:59 Intake Total 1300 3840 3960 1150 Output Total 1300 300 5 Balance 1300 2540 3660 1145 Meds/Results Medications: Active Medications Generic Name Dose Route Start Last Admin Trade Name Freq PRN Reason Stop Dose Admin Acetaminophen 650 mg 08/19/22 19:37 Acetaminophen 325 Mg Tablet PO Q4H PRN Mild Pain (1-3) or Fever Hydrocodone Bitart/Acetaminophen 1 tab 08/19/22 19:37 Hydrocodone/Acetaminophen (*Crx) 5-325 Mg Tablet PO Q6H PRN Pain Rated 4-6 Albuterol 2.5 mg 08/19/22 19:37 Albuterol Sulfate Neb 2.5 Mg/3 Ml Inh INHALATION Q6HRT PRN Shortness Of Breath Bisacodyl 10 mg 08/21/22 11:57 Bisacodyl 10 Mg Suppository RECTAL QAM PRN Constipation Dextrose 12.5 gm 08/19/22 19:40 Dextrose 50% 25 Gm/50 Ml Syringe IV PUSH PRN PRN Hypoglycemia Protocol Diltiazem HCl 240 mg 08/21/22 09:00 08/22/22 08:44 Diltiazem Hcl Cd 240 Mg Cap.Er.24h PO 240 mg QAM MARBELLA Administration Enoxaparin Sodium 40 mg 08/20/22 09:00 08/22/22 08:43 Enoxaparin 40 Mg/0.4 Ml Syringe SUB-Q 40 mg DAILY MARBELLA Administration Famotidine 20 mg 08/20/22 09:00 08/22/22 08:44 Famotidine 20 Mg Tablet PO 20 mg Q12HR MARBELLA Administration Fluticasone Propionate 1 puff 08/21/22 06:48 Fluticasone Prop 110 Mcg Inhaler 12 Gm (*Sp) INHALATION Q12H PRN Allergy Symptoms Glucagon 1 mg 08/19/22 19:40 Glucagon For Inj 1 Mg Vial IM PRN PRN Hypoglycemia Protocol Glucose 15 gm 08/19/22 19:40 Glucose Oral Gel 15 Gm Of Glucse In 37.5 Gm Tube PO PRN PRN Hypoglycemia Protocol Hydralazine HCl 10 mg 08/19/22 19:37 Hydralazine Hcl 20 Mg/Ml Vial IV PUSH Q6H PRN Hypertension Ceftriaxone Sodium 2 gm/ 100 mls @ 200 mls/hr 08/20/22 00:40 08/21/22 21:51 Sodium Chloride IVPB 08/22/22 22:29 Infused DAILY@2200 MARBELLA Infusion Dextrose 1,000 mls @ 100 mls/hr 08/19/22 19:40 Dextrose 5% 1,000 Ml IVPB PRN PRN Hypoglycemia Protocol Insulin Aspart 2 - 5 units 08/20/22 08:00 08/22/22 08:15 Insulin Aspart (*Bkc) 100 Units/Ml SUB-Q Not Given TIDWM [facility] Protocol Lisinopril 10 mg 08/21/22 09:00 08/22/22 08:44 Lisinopril 10 Mg Tablet PO 10 mg QAM MARBELLA Administration Miscellaneous Information 0 each 08/21/22 00:01 Clarify Flovent Inhaler Prn Allergy Symptoms. Should This Be The Fluticasone Nasal Inhaler XX 09/20/22 00:00 CLARIFY MARBELLA Morphine Sulfate 2 mg 08/19/22 19:37 Morphine Sulfate (*Crx) 2 Mg/Ml Inj IV PUSH Q4H PRN For pain 7-10 Ondansetron HCl 4 mg 08/19/22 19:37 08/21/22 06:48 Ondansetron Inj 4
[2022-08-22 12:05] LABS: Glucose Point of Care 171 mg/dl (65-105)
[2022-08-22 14:00] VITALS: BP 144/57; PULSE 72; RESP 18; TEMP 36.6; O2SAT 94
--- NOTE | 2022-08-22 16:00 | P.PNIM_ITS ---
Progress Note: A&P Assessment and Plan (1) Inguinal hernia: Qualifiers: Laterality: unilateral Code(s): K40.90 - Unilateral inguinal hernia, without obstruction or gangrene, not specified as recurrent Status: Acute Assessment and Plan: * POD 3 * CT of the abd/pel shows 1. Right inguinal hernia containing a short segment of small bowel. Mesenteric edema and ascites are seen within the right inguinal hernia sac. The distal small bowel is relatively decompressed. Surgical evaluation is recommended 2. 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 Nonemergent vascular surgical evaluation is recommended. * Irreducible inguinal hernia * WBC trending down currently 11.8 * Give IV fluids, can be stopped if able to take in PO * General surgery consulted * Advance diet as tolerated per general surgery * Reports large BM * Ileus noted to be better * Can probably go home if tolerating better diet (2) Chronic kidney disease, stage 1: Code(s): N18.1 - Chronic kidney disease, stage 1 Status: Acute Assessment and Plan: * Acute on chronic renal failure * Current BUN/Cr 15/1.00, remains at baseline * Most likely related to dehydration * Currently at baseline * Seems resolved * Continue to trend labs (3) HTN (hypertension): Code(s): I10 - Essential (primary) hypertension Status: Acute Assessment and Plan: * Current BP is 144/57 * restart lisinopril and Cardizem * Trend BP * Adjust therapy as indicated (4) HLD (hyperlipidemia): Code(s): E78.5 - Hyperlipidemia, unspecified Status: Acute Assessment and Plan: * Continue rosuvastatin (5) COPD (chronic obstructive pulmonary disease): Code(s): J44.9 - Chronic obstructive pulmonary disease, unspecified Status: Acute Assessment and Plan: * Stable, chronic * Not in acute exacerbation * Albuterol if indicated (6) Diabetes: Qualifiers: Diabetes mellitus penitentiary insulin use: without penitentiary use Diabetes mellitus type: type 2 Code(s): E11.9 - Type 2 diabetes mellitus without complications Status: Chronic Assessment and Plan: * Current glucose 171 * Insulin sliding scale * continue to trend glucose * Accu cheks * Adjust therapy as indicated (7) Leukocytosis: Code(s): D72.829 - Elevated white blood cell count, unspecified Status: Acute Assessment and Plan: * Probably reactive, currently at 8.0 * No evidence of bowel ischemia * Urine culture no growth * Stop IV Rocephin * No other indication noted for infection (8) Sinus tachycardia: Code(s): R00.0 - Tachycardia, unspecified Status: Acute Assessment and Plan: * Did have a [address] * Mag is 2.5 * Continue to trend labs * Replace as indicated Time Spent With Patient Time: 48 minutes Time with patient: Greater than 35 minutes Subjective Date/time seen: 08/22/22 1600 Interval history: 08/22/22 1600 Patient seems to be doing well today. He was walking the halls and had a large
--- NOTE | 2022-08-22 16:00 | PM.IMPN ---
Progress Note: A&P Assessment and Plan (1) Inguinal hernia: Qualifiers: Laterality: unilateral Code(s): K40.90 - Unilateral inguinal hernia, without obstruction or gangrene, not specified as recurrent Status: Acute Assessment and Plan: POD 3 CT of the abd/pel shows 1. Right inguinal hernia containing a short segment of small bowel. Mesenteric edema and ascites are seen within the right inguinal hernia sac. The distal small bowel is relatively decompressed. Surgical evaluation is recommended 2. 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 Nonemergent vascular surgical evaluation is recommended. Irreducible inguinal hernia WBC trending down currently 11.8 Give IV fluids, can be stopped if able to take in PO General surgery consulted Advance diet as tolerated per general surgery Reports large BM Ileus noted to be better Can probably go home if tolerating better diet (2) Chronic kidney disease, stage 1: Code(s): N18.1 - Chronic kidney disease, stage 1 Status: Acute Assessment and Plan: Acute on chronic renal failure Current BUN/Cr 15/1.00, remains at baseline Most likely related to dehydration Currently at baseline Seems resolved Continue to trend labs (3) HTN (hypertension): Code(s): I10 - Essential (primary) hypertension Status: Acute Assessment and Plan: Current BP is 144/57 restart lisinopril and Cardizem Trend BP Adjust therapy as indicated (4) HLD (hyperlipidemia): Code(s): E78.5 - Hyperlipidemia, unspecified Status: Acute Assessment and Plan: Continue rosuvastatin (5) COPD (chronic obstructive pulmonary disease): Code(s): J44.9 - Chronic obstructive pulmonary disease, unspecified Status: Acute Assessment and Plan: Stable, chronic Not in acute exacerbation Albuterol if indicated (6) Diabetes: Qualifiers: Diabetes mellitus terminal manager insulin use: without fdc use Diabetes mellitus type: type 2 Code(s): E11.9 - Type 2 diabetes mellitus without complications Status: Chronic Assessment and Plan: Current glucose 171 Insulin sliding scale continue to trend glucose Accu cheks Adjust therapy as indicated (7) Leukocytosis: Code(s): D72.829 - Elevated white blood cell count, unspecified Status: Acute Assessment and Plan: Probably reactive, currently at 8.0 No evidence of bowel ischemia Urine culture no growth Stop IV Rocephin No other indication noted for infection (8) Sinus tachycardia: Code(s): R00.0 - Tachycardia, unspecified Status: Acute Assessment and Plan: Did have a [address] Mag is 2.5 Continue to trend labs Replace as indicated Time Spent With Patient Time: 48 minutes Time with patient: Greater than 35 minutes Subjective Date/time seen: 08/22/22 1600 Interval history: 08/22/22 1600 Patient seems to be doing well today. He was walking the halls and had a large bowel movement. Patient was sitting in the chair when I went to evaluate him with his family. He denies any chest pain, shortness a breath, nausea, vomiting, diarrhea or constipation. Patient was up to go to walk upon evaluation. 08/21/22 0930 Patient is sitting in the chair. He stated that he is eating and is tolerating clear liquids at this time. He also stated that he is still very nauseated and really has not had any relief since admission. He is also denying any current gas, or BM at this time. He does appear and feel pretty distended and firm. He denies any further chest pain, shortness of breath, weakness, fatigue. He has also not had any further episodes of ST or abnormal rhythms. 08/20/22 1300 Patient is lying in
[2022-08-22 16:43] LABS: Glucose Point of Care 160 mg/dl (65-105)
[2022-08-22 19:25] VITALS: BP 146/57; PULSE 75; RESP 17; TEMP 37.1; O2SAT 96
[2022-08-22 20:00] VITALS: PULSE 75; RESP 17; O2SAT 96
--- NOTE | 2022-08-22 20:36 | PCRCNOTE ---
Patient refused fluticasone inhaler stating he does not use it at home anymore. He was using the inhaler when he was working, now that he is retired, he discontinued use.
[2022-08-22] MEDS: cefTRIAXone 2 GM in SODIUM CHLORIDE 0.9% IV 100 ML 200 ML IVPB (21:03)
[2022-08-22 21:12] LABS: Glucose Point of Care 126 mg/dl (65-105)
[2022-08-23 03:23] VITALS: BP 149/61; PULSE 80; RESP 18; TEMP 36.4; O2SAT 93
[2022-08-23 08:29] LABS: Glucose Point of Care 129 mg/dl (65-105)
[2022-08-23] MEDS: ENOXAPARIN 40 MG/0.4 ML SYRINGE SUB-Q (09:03)
--- NOTE | 2022-08-23 09:03 | P.DS_ITS ---
DS: Admitting Diagnosis Discharge Date 08/23/22 0900 Admitting Diagnosis Iguinal Hernia incarceration DS: Discharge Diagnosis Discharge Diagnosis (1) Inguinal hernia: Qualifiers: Laterality: unilateral Code(s): K40.90 - Unilateral inguinal hernia, without obstruction or gangrene, not specified as recurrent Status: Acute Assessment and Plan: * POD 4 * CT of the abd/pel shows 1. Right inguinal hernia containing a short segment of small bowel. Mesenteric edema and ascites are seen within the right inguinal hernia sac. The distal small bowel is relatively decompressed. Surgical evaluation is recommended 2. 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 Nonemergent vascular surgical evaluation is recommended. * Irreducible inguinal hernia * WBC trending down currently 11.8 * Give IV fluids, can be stopped if able to take in PO * General surgery consulted * Advance diet as tolerated per general surgery * Reports large BM * Ileus noted to be better * Can probably go home if tolerating better diet (2) Chronic kidney disease, stage 1: Code(s): N18.1 - Chronic kidney disease, stage 1 Status: Acute Assessment and Plan: * Acute on chronic renal failure * Current BUN/Cr 15/1.00, remains at baseline * Most likely related to dehydration * Currently at baseline * Seems resolved * Continue to trend labs (3) HTN (hypertension): Code(s): I10 - Essential (primary) hypertension Status: Acute Assessment and Plan: * Current BP is 149/61 * restart lisinopril and Cardizem * Trend BP * Adjust therapy as indicated (4) HLD (hyperlipidemia): Code(s): E78.5 - Hyperlipidemia, unspecified Status: Acute Assessment and Plan: * Continue rosuvastatin (5) COPD (chronic obstructive pulmonary disease): Code(s): J44.9 - Chronic obstructive pulmonary disease, unspecified Status: Acute Assessment and Plan: * Stable, chronic * Not in acute exacerbation * Albuterol if indicated (6) Diabetes: Qualifiers: Diabetes mellitus long term care pharmacist insulin use: without long term care pharmacist use Diabetes mellitus type: type 2 Code(s): E11.9 - Type 2 diabetes mellitus without complications Status: Chronic Assessment and Plan: * Current glucose 126 * Insulin sliding scale * continue to trend glucose * Accu cheks * Adjust therapy as indicated (7) Leukocytosis: Code(s): D72.829 - Elevated white blood cell count, unspecified Status: Acute Assessment and Plan: * Probably reactive, currently at 8.0 * No evidence of bowel ischemia * Urine culture no growth * Stop IV Rocephin * No other indication noted for infection (8) Sinus tachycardia: Code(s): R00.0 - Tachycardia, unspecified Status: Acute Assessment and Plan: * Did have a [address] * Mag is 2.5 * Continue to trend labs * Replace as indicated DS: Summary Hospital Course Hospital Course: Patient is an 87-year-old male with a past medical history of hypertension, COPD, diabetes, h
--- NOTE | 2022-08-23 09:03 | PM.DS ---
DS: Admitting Diagnosis Discharge Date 08/23/22 0900 Admitting Diagnosis Iguinal Hernia incarceration DS: Discharge Diagnosis Discharge Diagnosis (1) Inguinal hernia: Qualifiers: Laterality: unilateral Code(s): K40.90 - Unilateral inguinal hernia, without obstruction or gangrene, not specified as recurrent Status: Acute Assessment and Plan: POD 4 CT of the abd/pel shows 1. Right inguinal hernia containing a short segment of small bowel. Mesenteric edema and ascites are seen within the right inguinal hernia sac. The distal small bowel is relatively decompressed. Surgical evaluation is recommended 2. 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 Nonemergent vascular surgical evaluation is recommended. Irreducible inguinal hernia WBC trending down currently 11.8 Give IV fluids, can be stopped if able to take in PO General surgery consulted Advance diet as tolerated per general surgery Reports large BM Ileus noted to be better Can probably go home if tolerating better diet (2) Chronic kidney disease, stage 1: Code(s): N18.1 - Chronic kidney disease, stage 1 Status: Acute Assessment and Plan: Acute on chronic renal failure Current BUN/Cr 15/1.00, remains at baseline Most likely related to dehydration Currently at baseline Seems resolved Continue to trend labs (3) HTN (hypertension): Code(s): I10 - Essential (primary) hypertension Status: Acute Assessment and Plan: Current BP is 149/61 restart lisinopril and Cardizem Trend BP Adjust therapy as indicated (4) HLD (hyperlipidemia): Code(s): E78.5 - Hyperlipidemia, unspecified Status: Acute Assessment and Plan: Continue rosuvastatin (5) COPD (chronic obstructive pulmonary disease): Code(s): J44.9 - Chronic obstructive pulmonary disease, unspecified Status: Acute Assessment and Plan: Stable, chronic Not in acute exacerbation Albuterol if indicated (6) Diabetes: Qualifiers: Diabetes mellitus rn long term care insulin use: without snf use Diabetes mellitus type: type 2 Code(s): E11.9 - Type 2 diabetes mellitus without complications Status: Chronic Assessment and Plan: Current glucose 126 Insulin sliding scale continue to trend glucose Accu cheks Adjust therapy as indicated (7) Leukocytosis: Code(s): D72.829 - Elevated white blood cell count, unspecified Status: Acute Assessment and Plan: Probably reactive, currently at 8.0 No evidence of bowel ischemia Urine culture no growth Stop IV Rocephin No other indication noted for infection (8) Sinus tachycardia: Code(s): R00.0 - Tachycardia, unspecified Status: Acute Assessment and Plan: Did have a [address] Mag is 2.5 Continue to trend labs Replace as indicated DS: Summary Hospital Course Hospital Course: Patient is an 87-year-old male with a past medical history of hypertension, COPD, diabetes, hyperlipidemia presented to the ED with complaints sudden onset of lower abdominal pain, severe cramping and vomiting. CT of the abdomen and pelvis was performed and showed right inguinal hernia containing a short segment of small bowel. General surgery was consulted and hernia was noted to be irreducible. Patient was taken to surgery for hernia repair without mesh. Patient was started on clear liquids however developed an ileus and was placed on bowel rest. KUB was performed and showed dilated small bowel consistent with ileus. Patient was also given multiple suppositories and ileus had resolved. Patient has been able to tolerate a low-fiber diet and has had multiple bowel movements. He denies any further discomfort, bloating, c
[2022-08-23] MEDS: lisinopriL 10 MG TABLET PO (09:04)
[2022-08-23] MEDS: FAMOTIDINE 20 MG TABLET PO (09:04)
[2022-08-23] MEDS: ROSUVASTATIN 10 MG TABLET 20 MG PO (09:04)
[2022-08-23 09:09] VITALS: RESP 18; O2SAT 93
[2022-08-23 11:45] LABS: Glucose Point of Care 162 mg/dl (65-105)
--- NOTE | 2022-08-23 11:58 | PM.PNGS ---
Progress Note: A&P Assessment and Plan (1) Incarcerated right inguinal hernia: Code(s): K40.30 - Unilateral inguinal hernia, with obstruction, without gangrene, not specified as recurrent Status: Acute Assessment and Plan: Tolerating regular diet. OK to discharge today. Follow up with Dr. Kent in 1-2 weeks. Subjective Subjective Date/Time Seen: 08/23/22 11:58 Interval history: Tolerating regular diet. Passing flatus. No nausea or bloating. Pain controlled. Exam GI: Inspection: non-distended and incision (dry, intact) GI Palp: Yes Soft to palpation, No Tenderness to palpation present (GI) and No Guarding due to palpation present (GI) Auscultation: normal bowel sounds Objective Data Vital Signs Vital Signs: Vital Signs - 24 hr 08/22/22 14:00 08/22/22 19:25 08/22/22 20:00 Temperature 36.6 C 37.1 C Pulse Rate 72 75 75 Respiratory Rate 18 17 17 Blood Pressure 144/57 H 146/57 H Pulse Oximetry 94 96 96 Oxygen Delivery Room Air 08/23/22 03:23 08/23/22 09:09 Temperature 36.4 C L Pulse Rate 80 Respiratory Rate 18 18 Blood Pressure 149/61 H Pulse Oximetry 93 93 Oxygen Delivery Room Air Intake/Output Intake/Output: Intake & Output 08/20/22 08/21/22 08/22/22 08/23/22 23:59 23:59 23:59 23:59 Intake Total 3840 3960 2899 440 Output Total 1300 300 5 Balance 2540 3660 2894 440 Meds/Results Medications: Active Medications Generic Name Dose Route Start Last Admin Trade Name Freq PRN Reason Stop Dose Admin Acetaminophen 650 mg 08/19/22 19:37 Acetaminophen 325 Mg Tablet PO Q4H PRN Mild Pain (1-3) or Fever Hydrocodone Bitart/Acetaminophen 1 tab 08/19/22 19:37 Hydrocodone/Acetaminophen (*Crx) 5-325 Mg Tablet PO Q6H PRN Pain Rated 4-6 Albuterol 2.5 mg 08/19/22 19:37 Albuterol Sulfate Neb 2.5 Mg/3 Ml Inh INHALATION Q6HRT PRN Shortness Of Breath Bisacodyl 10 mg 08/21/22 11:57 Bisacodyl 10 Mg Suppository RECTAL QAM PRN Constipation Dextrose 12.5 gm 08/19/22 19:40 Dextrose 50% 25 Gm/50 Ml Syringe IV PUSH PRN PRN Hypoglycemia Protocol Diltiazem HCl 240 mg 08/21/22 09:00 08/23/22 09:04 Diltiazem Hcl Cd 240 Mg Cap.Er.24h PO 240 mg QAM MARBELLA Administration Enoxaparin Sodium 40 mg 08/20/22 09:00 08/23/22 09:03 Enoxaparin 40 Mg/0.4 Ml Syringe SUB-Q 40 mg DAILY MARBELLA Administration Famotidine 20 mg 08/20/22 09:00 08/23/22 09:04 Famotidine 20 Mg Tablet PO 20 mg Q12HR MARBELLA Administration Glucagon 1 mg 08/19/22 19:40 Glucagon For Inj 1 Mg Vial IM PRN PRN Hypoglycemia Protocol Glucose 15 gm 08/19/22 19:40 Glucose Oral Gel 15 Gm Of Glucse In 37.5 Gm Tube PO PRN PRN Hypoglycemia Protocol Hydralazine HCl 10 mg 08/19/22 19:37 Hydralazine Hcl 20 Mg/Ml Vial IV PUSH Q6H PRN Hypertension Dextrose 1,000 mls @ 100 mls/hr 08/19/22 19:40 Dextrose 5% 1,000 Ml IVPB PRN PRN Hypoglycemia Protocol Insulin Aspart 2 - 5 units 08/20/22 08:00 08/23/22 11:46 Insulin Aspart (*Bkc) 100 Units/Ml SUB-Q Not Given TIDWM [facility] Protocol Lisinopril 10 mg 08/21/22 09:00 08/23/22 09:04 Lisinopril 10 Mg Tablet PO 10 mg QAM MARBELLA Administration Morphine Sulfate 2 mg 08/19/22 19:37 Morphine Sulfate (*Crx) 2 Mg/Ml Inj IV PUSH Q4H PRN For pain 7-10 Ondansetron HCl 4 mg 08/19/22 19:37 08/21/22 06:48 Ondansetron Inj 4 Mg/2 Ml Vial IV PUSH 4 mg Q6H PRN Administration Nausea And Vomiting Rosuvastatin Calcium 20 mg 08/21/22 09:00 08/23/22 09:04 Rosuvastatin 10 Mg Tablet PO 20 mg DAILY MARBELLA Administration Radiology Results: ITS Impressions Abdomen/Pelvis CT 08/19/22 17:27 IMPRESSION: 1. Right inguinal hernia containing a short segment of small bowel. Mesenteric edema and ascites are seen within the right inguinal hernia sac. The distal small bowel is
== END 2022-08-23 13:05 | disposition home or self-care (01) | DRG 351 ==
LOC: ANHED 16:37 → ANHSURGERY 19:03 → ANH2MED 23:40 → ANHSURGERY 08-20 10:35 → ANH2MED 08-20 10:35
PROVIDERS: Emergency Medicine; Internal Medicine; Nurse Practitioner Family; Admitting Provider Surgery; Emergency Provider Nurse Practitioner Family; PCP Internal Medicine; Visit Provider Nurse Practitioner
PROC: 0YQ50ZZ Repair Right Inguinal Region, Open Approach (ICD-10-PCS; principal; 2022-08-19 20:00)
DX: K40.30 Unilateral inguinal hernia, with obstruction, without gangrene, not specified as recurrent (principal); K56.7 Ileus, unspecified; K91.89 Other postprocedural complications and disorders of digestive system; N17.9 Acute kidney failure, unspecified; I12.9 Hypertensive chronic kidney disease with stage 1 through stage 4 chronic kidney disease, or unspecified chronic kidney disease; E11.22 Type 2 diabetes mellitus with diabetic chronic kidney disease; N18.1 Chronic kidney disease, stage 1; E86.0 Dehydration; E78.5 Hyperlipidemia, unspecified; J44.9 Chronic obstructive pulmonary disease, unspecified; D72.829 Elevated white blood cell count, unspecified; R00.0 Tachycardia, unspecified; Z85.828 Personal history of other malignant neoplasm of skin; Z87.891 Personal history of nicotine dependence; Z79.82 Long term (current) use of aspirin
CPT/HCPCS: 36415; 74019; 74177; 80053; 81001; 82948; 83690; 83735; 85025; 87086; 93005; 96361; 96375; 96376; 97161; 97165; 99285; A9270; G0378; J0131; J0330; J0696; J1650; J1956; J2270; J2405; J2704; J3010; J3475; J7030; J7120; Q9967